=== PATIENT | male | born 1955 ===

== ENCOUNTER → 2021-03-08 | Outpatient (CLI) | payer OTHER ==
[~2021-03-08] MED LIST: TENORMIN50 M1; TRUVADA TABLET1 TAB
== END | disposition home or self-care (01) ==
LOC: RAD 12:25
PROVIDERS: ATTEND Orthopaedic Surgery
DX: M75.121 Complete rotator cuff tear or rupture of right shoulder, not specified as traumatic (principal); M25.512 Pain in left shoulder

== ENCOUNTER 2021-04-12 13:45 | Outpatient (CLI) | payer OTHER ==
[2021-04-12] MEDS ORDERED: CRESTOR5 MG PO (16:44)
[2021-04-12] MEDS ORDERED: SINGULAIR10 MG PO (16:44)
[2021-04-12] MEDS ORDERED: FORTAMET500 MG (16:44)
== END 2021-04-12 15:00 | disposition home or self-care (01) ==
LOC: LAB 13:45
PROVIDERS: ATTEND Orthopaedic Surgery
DX: D64.89 Other specified anemias (principal); E88.89 Other specified metabolic disorders; D68.8 Other specified coagulation defects; N39.0 Urinary tract infection, site not specified; Z22.322 Carrier or suspected carrier of Methicillin resistant Staphylococcus aureus; I10 Essential (primary) hypertension; I49.8 Other specified cardiac arrhythmias; Z76.89 Persons encountering health services in other specified circumstances

== ENCOUNTER 2021-04-14 16:43 | Outpatient (CLI) | payer OTHER ==
[~2021-04-14 16:43] MED LIST changes: +CRESTOR5 MG PO; +FORTAMET500 MG; +SINGULAIR10 MG PO
== END 2021-04-14 16:48 | disposition home or self-care (01) ==
LOC: LAB 16:43
PROVIDERS: ATTEND Orthopaedic Surgery
DX: D69.49 Other primary thrombocytopenia (principal)

== ENCOUNTER 2021-05-02 12:07 | Day surgery (SDC) | payer OTHER ==
[~2021-05-02 12:07] MED LIST changes: +DISCOVY PO
== END 2021-05-03 07:02 | disposition home or self-care (01) ==
LOC: CIR.AMB 12:07
PROVIDERS: ATTEND Orthopaedic Surgery
DX: M75.121 Complete rotator cuff tear or rupture of right shoulder, not specified as traumatic (principal); Z20.822 Contact with and (suspected) exposure to COVID-19